=== PATIENT | female | born 1965 | race African-American/Black ===

== ENCOUNTER 2016-07-16 06:06 | Day surgery (SDC) | payer OTHER ==
[2016-07-16] MEDS ORDERED: ECOTRIN PO ONE (06:39)
[2016-07-16] MEDS ORDERED: NACL 0.9% 500 ML 500 ML IV SCH (07:00)
[2016-07-16 07:12] LABS: Hematocrit 43.1 % (30.3-42.9); Hemoglobin 14.7 gm/dl (10.1-14.3); Mean Corpuscular HGB Conc 34 % (30-34); Mean Corpuscular Hemoglobin 31 pg (28-32); Mean Corpuscular Volume 90 fl (79-97); Platelet Count 220 K/mm3 (140-440); Red Blood Count 4.82 M/mm3 (3.65-5.03); Red Cell Distribution Width 12.7 % (13.2-15.2); White Blood Count 4.7 K/mm3 (4.5-11.0)
[2016-07-16 07:25] LABS: INR 0.92 (0.87-1.13)
[2016-07-16 07:48] LABS: Blastocytes % (Manual) 0 %
[2016-07-16 07:49] LABS: Basophils % (Manual) 0 % (0.0-1.8); Diff Status Complete; Eosinophils % (Manual) 0 % (0.0-4.3); RBC Morphology Normal
[2016-07-16] MEDS: SUBLIMAZE ONE ×2 (07:49→08:32)
[2016-07-16] MEDS: CALAN ONE ×2 (07:50→08:36)
[2016-07-16] MEDS: VERSED ONE ×2 (07:50→08:32)
[2016-07-16] MEDS: XYLOCAINE 2% INFILTRATI ONE ×2 (07:51→08:33)
[2016-07-16] MEDS: HEPARIN 10,000 UNITS/10 ML ONE ×2 (07:51→08:36)
[2016-07-16] MEDS: HEPARIN/NS 5000 UNIT/500ML(CATH LAB) 0 ML IR ONE ×2 (07:52→08:25)
[2016-07-16] MEDS: NITROGLYCERIN SYRINGE 0 ML ONE ×3 (07:52→08:36)
[2016-07-16 08:00] LABS: Anion Gap 20 mmol/L; BUN/Creatinine Ratio 16.66; Blood Urea Nitrogen 10 mg/dL (7-17); Calcium 8.8 mg/dL (8.4-10.2); Carbon Dioxide 22 mmol/L (22-30); Chloride 100.7 mmol/L (98-107); Glucose 98 mg/dL (65-100); Potassium 4.2 mmol/L (3.6-5.0); Sodium 138 mmol/L (137-145)
[2016-07-16] MEDS ORDERED: CALAN ONE (08:02)
[2016-07-16] MEDS ORDERED: HEPARIN/NS 5000 UNIT/500ML(CATH LAB) 1,000 ML IR ONE (08:02)
[2016-07-16] MEDS ORDERED: HEPARIN 10,000 UNITS/10 ML ONE (08:02)
[2016-07-16] MEDS ORDERED: NITROGLYCERIN SYRINGE 3 ML ONE (08:03)
[2016-07-16] MEDS ORDERED: SUBLIMAZE ONE (08:03)
[2016-07-16] MEDS ORDERED: VERSED ONE (08:03)
[2016-07-16] MEDS ORDERED: XYLOCAINE 2% INFILTRATI ONE (08:05)
--- NOTE | 2016-07-16 09:30 | Discharge Summary ---
Short Stay Discharge Plan Diet: low fat, low cholesterol, low salt Additional Instructions: POST CARDIAC CATH INSTRUCTIONS Follow up with: TOD HOLT MD [Primary Care Provider] - 7 Days MAURILIO SUGGS MD [Staff Physician] - 7 Days
--- NOTE | 2016-07-16 11:29 | Cardiac Catherization Report ---
HISTORY: The patient is a 50-year-old female with a history of chest pain, syncope, and hypertension. Coronary angiography was recommended to further evaluate her symptoms. PROCEDURE: Left heart catheterization, ventriculography, and coronary angiography via the right radial artery using 5-Japanese Emile catheters and the pigtail catheter. COMPLICATIONS: None. PREPROCEDURE DIAGNOSIS: Possible angina. POSTPROCEDURE DIAGNOSIS: Mild coronary artery disease. ESTIMATED BLOOD LOSS: 10-20 mL. TISSUE SAMPLES: None. SEDATION: Intravenous Versed and fentanyl. HEMODYNAMICS: Central aortic pressure 124/89. Left ventricular pressure 119/21. ANGIOGRAPHIC RESULTS: 1. Left ventricle: The ventriculogram reveals a normal sized left ventricle with normal systolic function. The ejection fraction is 60-65%. 2. Right coronary artery: This is the dominant vessel and there are minimal intimal irregularities. 3. Left coronary artery: This vessel contains mild calcification and is diffusely irregular. The left main is free of remarkable disease. The circumflex contains an ostial 30% stenosis. The LAD contains an ostial 10% stenosis, proximal 10% stenosis, and a mid 40% stenosis near the takeoff of the second diagonal branch, which contains a proximal 30% stenosis. FINAL IMPRESSION: Mild coronary artery disease and normal left ventricular function. Consider other organ systems as possible etiology of this patient's chest pain. PLAN: Office follow up within 7 days, medical therapy, CAD risk factor modification, consider GI workup for further chest pain. JOB# [id number] RIVAS/JARRETT
[2016-07-16 11:31] VITALS: BP 117/75
== END 2016-07-16 12:10 | disposition home or self-care (01) ==
LOC: OPU 06:06
PROVIDERS: ATTEND Internal Medicine Cardiovascular Disease
DX: I25.10 Atherosclerotic heart disease of native coronary artery without angina pectoris (principal); I10 Essential (primary) hypertension; E78.5 Hyperlipidemia, unspecified; Z82.49 Family history of ischemic heart disease and other diseases of the circulatory system; Z83.49 Family history of other endocrine, nutritional and metabolic diseases
CPT/HCPCS: 36415; 80048; 85007; 85025; 85610; 85730; 93005; 93010; 93458; C1894; J1644; J2250; J3010; J7040; Q9967

== ENCOUNTER 2016-07-23 08:31 | Outpatient (CLI) | payer OTHER ==
--- NOTE | 2016-07-23 09:34 | Mammography Report ---
Bilateral mammogram: Compared to 09/21/14. CAD study utilized. Findings: Predominance adipose tissue bilaterally. No mass or microcalcification. Benign axillary nodes. Impression: Benign findings. Annual followup recommended. BI-RADS CATEGORY: 2 = Benign ACR BI-RADS MAMMOGRAPHIC CODES: 0 = Needs additional imaging evaluation; 1 = Negative; 2 = Benign; 3 = Probably benign; 4 = Suspicious; 5 = Malignant; 6 = Known biopsy-proven malignancy COMMENT: 1. Dense breast tissue, i.e., adenosis, fibrocystic changes, etc., may obscure an underlying neoplasm. 2. Approximately 10% of cancers are not detected with mammography. 3. A negative mammography report should not delay biopsy if a clinically suspicious mass is present. COMMENT: Patient follow-up letters are generated in [employer].
== END 2016-07-23 08:32 | disposition home or self-care (01) ==
LOC: MAMMO 08:31
PROVIDERS: ATTEND Family Medicine Adult Medicine
DX: Z12.31 Encounter for screening mammogram for malignant neoplasm of breast (principal)
CPT/HCPCS: 77067; G0202